=== PATIENT | male | born 1975 | race African-American/Black ===

== ENCOUNTER 2021-02-23 09:37 | Emergency (ER) | payer SELFPAY ==
[2021-02-23] MEDS ORDERED: Ketorolac Tromethamine 30 MG/ML VIAL ONE (10:40)
[2021-02-23] MEDS ORDERED: Acetaminophen 500 MG TAB ONE ×2 (10:40→10:42)
== END 2021-02-23 11:14 | disposition home or self-care (01) ==
LOC: ERS 09:37
DX: M54.50 Low back pain, unspecified (principal)
CPT/HCPCS: 96372; 99283; J1885

== ENCOUNTER 2021-05-13 17:15 | Emergency (ER) | payer SELFPAY | END 2021-05-13 17:58 | disposition home or self-care (01) | LOC: ERS 17:15 | DX: I10 Essential (primary) hypertension (principal) | CPT/HCPCS: 99283 ==

== ENCOUNTER 2021-06-03 10:09 | Emergency (ER) | payer SELFPAY | END 2021-06-03 12:22 | disposition home or self-care (01) | LOC: ERS 10:09 | DX: M62.838 Other muscle spasm (principal); F17.210 Nicotine dependence, cigarettes, uncomplicated | CPT/HCPCS: 99283 ==

== ENCOUNTER 2021-07-01 11:32 | Emergency (ER) | payer SELFPAY | END 2021-07-01 12:23 | disposition home or self-care (01) | LOC: ERS 11:32 | DX: K03.81 Cracked tooth (principal); K02.9 Dental caries, unspecified; F17.210 Nicotine dependence, cigarettes, uncomplicated | CPT/HCPCS: 99282 ==

== ENCOUNTER 2021-11-16 18:45 | Emergency (ER) | payer SELFPAY | END 2021-11-16 21:39 | disposition home or self-care (01) | LOC: ERS 18:45 | DX: R59.0 Localized enlarged lymph nodes (principal); F17.210 Nicotine dependence, cigarettes, uncomplicated | CPT/HCPCS: 99283 ==

== ENCOUNTER 2021-12-07 08:59 | Emergency (ER) | payer SELFPAY ==
[2021-12-07 09:58] LABS: #Basophils 0.1 thou/uL (0.0-0.2); #Eosinphils 0.1 thou/uL (0.0-0.7); #Lymphocytes 2.5 thou/uL (1.20-3.40); #Monocytes 0.6 thou/uL (0.11-0.59); #Neutrophils 4.4 thou/uL (1.40-6.50); %Basophils 0.7 % (0.0-1.0); %Eosinophils 1.1 % (0.0-10.0); %Lymphocytes 32.5 % (21.0-51.0); %Monocytes 8.1 % (0.0-10.0); %Neutrophils 57.5 % (42.0-75.0); Hemoglobin 12.9 g/dL (14.0-18.0); Mean Corpuscular HGB CONC 32.3 g/dL (32.0-36.0); Mean Corpuscular Volume 95.9 fL (78.0-98.0); Mean Platelet Volume 7.9 fL (7.4-10.4); Platelet Count 259 thou/uL (130-400); RBC Distribution Width 12.4 % (11.5-14.5); Red Blood Cell (RBC) Count 4.17 mill/uL (4.70-6.10); White Blood Cell (WBC) Count 7.6 thou/uL (4.8-10.8)
[2021-12-07 10:15] LABS: ALT (SGPT) 29 U/L (8-55); AST (SGOT) 36 U/L (5-34); Albumin 3.6 g/dL (3.5-5.0); Alkaline Phosphatase 56 U/L (40-110); Anion Gap 12 mmol/L (10-20); BUN (Urea Nitrogen) 12 mg/dL (8.9-20.6); Bilirubin, Total Less than 0.2 mg/dL (0.2-1.2); Calc. Creatinine Clearance 0 mL/min (70-130); Calcium 8.9 mg/dL (7.8-10.44); Carbon Dioxide 26 mmol/L (22-29); Chloride 108 mmol/L (98-107); Estimated GFR 76; Globulin 2.8 g/dL (2.4-3.5); Glucose 101 mg/dL (70-105); Potassium 4.2 mmol/L (3.5-5.1); Protein, Total 6.4 g/dL (6.0-8.3); Sodium 142 mmol/L (136-145)
== END 2021-12-07 11:09 | disposition home or self-care (01) ==
LOC: ERS 08:59
DX: R55 Syncope and collapse (principal); F17.210 Nicotine dependence, cigarettes, uncomplicated
CPT/HCPCS: 36415; 80053; 85025; 93005; 94760

== ENCOUNTER 2021-12-25 08:09 | Emergency (ER) | payer SELFPAY | END 2021-12-25 09:43 | disposition home or self-care (01) | LOC: ERS 08:09 | DX: K04.7 Periapical abscess without sinus (principal); K03.81 Cracked tooth; K02.9 Dental caries, unspecified | CPT/HCPCS: 99283 ==

== ENCOUNTER 2022-03-15 09:00 | Emergency (ER) | payer SELFPAY | END 2022-03-15 10:37 | disposition home or self-care (01) | LOC: ERS 09:00 | DX: R69 Illness, unspecified (principal); M79.10 Myalgia, unspecified site | CPT/HCPCS: 87804; 99283 ==

== ENCOUNTER 2023-02-16 09:29 | Emergency (ER) | payer SELFPAY ==
[2023-02-16 09:57] LABS: #Eosinphils 0.4 thou/uL (0.0-0.7); #Monocytes 0.8 thou/uL (0.11-0.59); #Neutrophils 6.2 thou/uL (1.40-6.50); %Basophils 0.3 % (0.0-1.0); %Eosinophils 4.4 % (0.0-10.0); %Lymphocytes 23.1 % (21.0-51.0); %Monocytes 8.5 % (0.0-10.0); %Neutrophils 63.4 % (42.0-75.0); Hematocrit 43.8 % (42.0-52.0); Hemoglobin 15.2 g/dL (14.0-18.0); Mean Corpuscular HGB CONC 34.7 g/dL (32.0-36.0); Mean Corpuscular Hemoglobin 30.7 pg (27.0-31.0); Mean Corpuscular Volume 88.5 fl (78.0-98.0); Mean Platelet Volume 9.8 fL (7.4-10.4); Platelet Count 273 10x3/uL (130-400); RBC Distribution Width 12.8 % (11.5-14.5); Red Blood Cell (RBC) Count 4.95 mill/uL (4.70-6.10); White Blood Cell (WBC) Count 9.8 10x3/uL (4.8-10.8)
[2023-02-16 10:21] LABS: ALT (SGPT) 33 U/L (8-55); AST (SGOT) 53 U/L (5-34); Albumin 5.1 g/dL (3.5-5.0); Alkaline Phosphatase 54 U/L (40-110); Anion Gap 13 mmol/L (10-20); BUN (Urea Nitrogen) 15 mg/dL (8.9-20.6); Bilirubin, Total 0.6 mg/dL (0.2-1.2); Calc. Creatinine Clearance 0 mL/min (70-130); Calcium 10.1 mg/dL (7.8-10.44); Carbon Dioxide 22 mmol/L (22-29); Chloride 106 mmol/L (98-107); Estimated GFR 70; Glucose 101 mg/dL (70-105); Lipase Less than 4 U/L (8-78); Potassium 4.1 mmol/L (3.5-5.1); Protein, Total 8.1 g/dL (6.0-8.3); Sodium 137 mmol/L (136-145)
[2023-02-16 10:35] LABS: Bilirubin Small (Negative); Blood, Urine Negative (Negative); Glucose, Urine (Dipstick) Negative (Negative); Ketone, Urine Negative (Negative); Leukocyte Negative (Negative); Nitrite Negative (Negative); Protein, Urine (Dipstick) 30 mg/dL (Neg-Trace); Urobilinogen 0.2 mg/dL (Less than 2)
[2023-02-16 10:37] LABS: Clarity Clear (Clear); Specific Gravity, Urine 1.018 (1.002-1.036); pH, Urine 5.5 (5.0-9.0)
[2023-02-16 10:41] LABS: Bacteria/HPF Rare-Few HPF (None Seen); CAUTI Indications for Culture Pelvic or flank pain; RBC/HPF None Seen HPF (0-3); Squamous Epithelial None Seen HPF (0-3); WBC/HPF None Seen HPF (0-3)
[2023-02-16 10:42] LABS: Urine Culture Reflex No No
== END 2023-02-16 11:27 | disposition home or self-care (01) ==
LOC: ERS 09:29
DX: K29.00 Acute gastritis without bleeding (principal)
CPT/HCPCS: 71045; 80053; 81001; 83690; 85025; 93005

== ENCOUNTER 2023-03-01 13:21 | Emergency (ER) | payer SELFPAY | END 2023-03-01 15:30 | disposition left against medical advice (07) | LOC: ERS 13:21 | DX: Z53.21 Procedure and treatment not carried out due to patient leaving prior to being seen by health care provider (principal) ==

== ENCOUNTER 2023-03-02 02:44 | Emergency (ER) | payer SELFPAY ==
[2023-03-02] MEDS ORDERED: Acetaminophen 500 MG TAB ONE (03:31)
[2023-03-02] MEDS ORDERED: Ibuprofen 200 MG TAB ONE (03:31)
[2023-03-02 04:22] LABS: SARS-CoV-2 NAA Rapid Test Not Detected (NotDetected)
[2023-03-02] MEDS ORDERED: LevoFLOXacin 500 MG TAB ONE (05:17)
[2023-03-02] MEDS ORDERED: LevoFLOXacin 250 MG TAB ONE (05:17)
== END 2023-03-02 05:21 | disposition home or self-care (01) ==
LOC: ERS 02:44
DX: J18.9 Pneumonia, unspecified organism (principal); F17.210 Nicotine dependence, cigarettes, uncomplicated; Z20.822 Contact with and (suspected) exposure to COVID-19
CPT/HCPCS: 71046